=== PATIENT | male | born 1975 | race Caucasian/White ===

== ENCOUNTER → 2020-07-08 | Outpatient (CLI) | payer MEDICARE ==
[2020-07-08 16:51] LABS: HEMOGLOBIN A1C 5.6 % (3.8-5.6)
[2020-07-08 16:59] LABS: CHOL/HDL RATIO 6.4 (4.2-7.3)
== END | disposition home or self-care (01) ==
LOC: LABPV 13:15
PROVIDERS: ATTEND Psychiatry & Neurology Psychiatry
DX: Z13.1 Encounter for screening for diabetes mellitus (principal); F25.0 Schizoaffective disorder, bipolar type; E11.9 Type 2 diabetes mellitus without complications; E78.5 Hyperlipidemia, unspecified
CPT/HCPCS: 80061; 80164; 82947; 83036